=== PATIENT | female | born 1985 ===

== ENCOUNTER 2017-10-30 10:22 | Day surgery (SDC) | payer OTHER ==
[~2017-10-30] VITALS: Ht 167.6 cm; Wt 80.7 kg
[2017-10-30] MEDS ORDERED: LACTATED RINGERS 1,000 ML IV SCH (11:02)
[2017-10-30 11:05] VITALS: BP 95/62
[2017-10-30] MEDS ORDERED: LIDOCAINE-MPF 1%, 2ML ONE (11:09)
[2017-10-30 11:28] LABS: BASOPHILS # (AUTO) 0.03 x10^3/uL (0-0.1); BASOPHILS % (AUTO) 1 % (0-1); EOSINOPHILS # (AUTO) 0.07 x10^3/uL (0-0.4); EOSINOPHILS % (AUTO) 1 % (1-7); LYMPHOCYTES # (AUTO) 1.27 x10^3/uL (1-3.4); LYMPHOCYTES % (AUTO) 26 % (22-44); MD NO; MEAN CORPUSCULAR HEMOGLOBIN 32.2 pg (27.0-34.8); MEAN CORPUSCULAR HGB CONC 34.8 g/dL (32.4-35.8); MEAN CORPUSCULAR VOLUME 92.5 fL (80-100); MEAN PLATELET VOLUME 7.8 fL (7.4-10.4); MONOCYTES # (AUTO) 0.26 x10^3/uL (0.2-0.8); MONOCYTES % (AUTO) 5 % (2-9); NEUTROPHILS # (AUTO) 3.24 x10^3/uL (1.8-6.8); NEUTROPHILS % (AUTO) 67 % (42-75); PLATELET COUNT 276 x10^3/uL (130-400); RED CELL DISTRIBUTION WIDTH 13.2 % (9.6-15.2)
[2017-10-30] MEDS ORDERED: OXYcodone IR 5MG TABLET PO ONE (11:30)
[2017-10-30] MEDS ORDERED: ONDANSETRON ODT 8 MG PO ONE (11:30)
[2017-10-30] MEDS ORDERED: ACETAMINOPHEN 500 MG TABLET PO ONE (11:30)
[2017-10-30] MEDS ORDERED: LIDOCAINE-MPF 1%, 2ML INFIL ONE (11:30)
[2017-10-30] MEDS ORDERED: MISOPROSTOL 200 MCG TABLET ONE (11:32)
[2017-10-30] MEDS ORDERED: SILVER NITRATE STICK TP ONE (11:32)
[2017-10-30] MEDS ORDERED: BUPIVACAINE/PF 0.25% ONE (11:32)
[2017-10-30] MEDS ORDERED: EPINEPHRINE 1 MG/ML, 1ML ONE (11:32)
[2017-10-30] MEDS ORDERED: OXYTOCIN 10 UNITS/ML, 1ML ONE (11:32)
[2017-10-30] MEDS ORDERED: METHYLERGONOVINE 0.2 MG/ML IM ONE (11:33)
[2017-10-30] MEDS ORDERED: NONE PER PT (11:43)
[2017-10-30] MEDS ORDERED: MIDAZOLAM 1 MG/ML, 2ML ONE (11:55)
[2017-10-30] MEDS ORDERED: FENTANYL PF 100 MCG/2ML ONE ×2 (11:55→13:44)
[2017-10-30] MEDS ORDERED: PROPOFOL 10 MG/ML, 20ML ONE (11:56)
[2017-10-30] MEDS ORDERED: LIDOCAINE 2%, 10ML ONE (11:56)
[2017-10-30] MEDS ORDERED: DEXAMETHASONE 4 MG/ML, 1ML ONE ×2 (11:57)
[2017-10-30] MEDS ORDERED: morphine SULFATE 10 MG/ML, 1ML IV PRN (13:00)
[2017-10-30] MEDS ORDERED: OXYcodone 5 MG/5 ML ORAL.SOL UDC PO PRN (13:00)
[2017-10-30] MEDS ORDERED: PROMETHAZINE 25 MG/ML, 1ML IV PRN (13:00)
[2017-10-30] MEDS ORDERED: MEPERIDINE/PF 25MG/0.5ML IVPush PRN (13:00)
[2017-10-30] MEDS ORDERED: LABETALOL 5MG/ML, 20ML IV PRN (13:00)
[2017-10-30] MEDS ORDERED: hydrALAzine 20 MG/ML, 1ML IV PRN (13:00)
[2017-10-30] MEDS ORDERED: PROMETHAZINE 25 MG/ML, 1ML ONE (13:44)
[2017-10-30] MEDS: FENTANYL PF 100 MCG/2ML IV PRN ×2 (13:58→14:13)
[2017-10-30] MEDS ORDERED: KETOROLAC 30 MG/1 ML ONE (14:15)
[2017-10-30] MEDS ORDERED: KETOROLAC 30 MG/1 ML IVPush ONE (14:30)
[2017-10-30] MEDS ORDERED: CEFAZOLIN 1,000 MG ONE (15:30)
== END 2017-10-30 16:30 ==
LOC: OUT 10:22
PROVIDERS: ATTEND Obstetrics & Gynecology
DX: O02.1 Missed abortion (principal); Z3A.12 12 weeks gestation of pregnancy; Z98.890 Other specified postprocedural states; Z90.49 Acquired absence of other specified parts of digestive tract
CPT/HCPCS: 36415; 59820; 85025; 86850; 86900; 88305; J0171; J0690; J1100; J1885; J2250; J2550; J2590; J2704; J3010; J3490; J7120; Q0162; J2210